=== PATIENT | male | born 1940 | race Caucasian/White ===

== ENCOUNTER → 2016-09-15 | Outpatient (REF) | payer MEDICARE, OTHER ==
[2016-09-15 19:50] LABS: ALBUMIN 4.2 GM/DL (3.2-5.2); ALBUMIN/GLOBULIN RATIO 1.31 (1.00-1.93); CALCIUM LEVEL 8.6 MG/DL (8.8-10.2); CREATININE FOR GFR 1.41 MG/DL (0.70-1.30); POTASSIUM SERUM 3.8 MEQ/L (3.5-5.1); TOTAL PROTEIN 7.4 GM/DL (6.4-8.2)
[2016-09-15 20:09] LABS: MEAN CORPUSCULAR HEMOGLOBIN 32.1 pg (27.0-33.0); MEAN CORPUSCULAR HGB CONC 33.1 g/dl (32.0-36.5); MEAN CORPUSCULAR VOLUME 97.2 fl (80.0-96.0); RED CELL DISTRIBUTION WIDTH 12.9 % (11.5-14.5)
== END ==
LOC: M SFHCADAM 11:33
PROVIDERS: ATTEND Family Medicine
DX: N18.2 Chronic kidney disease, stage 2 (mild) (principal); I11.9 Hypertensive heart disease without heart failure; E78.2 Mixed hyperlipidemia; R97.20 Elevated prostate specific antigen [PSA]; Z23 Encounter for immunization
CPT/HCPCS: 80053; 80061; 82306; 84153; 85027; 90732; G0009; G0463

== ENCOUNTER → 2017-10-26 | Outpatient (REF) | payer MEDICARE, OTHER ==
[2017-10-26 19:31] LABS: HEMATOCRIT 43.4 % (42.0-52.0); HEMOGLOBIN 14.3 g/dl (13.5-17.5); MEAN CORPUSCULAR HEMOGLOBIN 32.1 pg (27.0-33.0); MEAN CORPUSCULAR HGB CONC 32.9 g/dl (32.0-36.5); MEAN CORPUSCULAR VOLUME 97.5 fl (80.0-96.0); PLATELET COUNT, AUTOMATED 116 10^3/uL (150-450); RED BLOOD COUNT 4.45 10^6/uL (4.30-6.10); RED CELL DISTRIBUTION WIDTH 13.2 % (11.5-14.5); WHITE BLOOD COUNT 6.2 10^3/uL (4.0-10.0)
[2017-10-26 19:36] LABS: VITAMIN B12 LEVEL 272 PG/ML (247-911)
[2017-10-26 19:37] LABS: ALBUMIN 3.8 GM/DL (3.2-5.2); ALBUMIN/GLOBULIN RATIO 1.09 (1.00-1.93); ALKALINE PHOSPHATASE 88 U/L (45-117); ALT/SGPT 17 U/L (12-78); ANION GAP 8 MEQ/L (8-16); AST/SGOT 11 U/L (7-37); BILIRUBIN,TOTAL 0.8 MG/DL (0.2-1.0); BLOOD UREA NITROGEN 30 MG/DL (7-18); CALCIUM LEVEL 8.5 MG/DL (8.8-10.2); CARBON DIOXIDE LEVEL 30 MEQ/L (21-32); CHLORIDE LEVEL 108 MEQ/L (98-107); CHOLESTEROL LEVEL 160 MG/DL (<200); CREATININE FOR GFR 1.61 MG/DL (0.70-1.30); GLOMERULAR FILTRATION RATE 44.4 (>42); GLUCOSE, FASTING 74 MG/DL (70-100); HDL CHOLESTEROL 38 MG/DL (>40); LDL CHOLESTEROL 94.4 MG/DL (<100); NON-HDL-C 122 MG/DL; PROSTATIC SPECIFIC AG MONITOR 5.45 NG/ML (< 4.0); SODIUM LEVEL 146 MEQ/L (136-145); TOTAL PROTEIN 7.3 GM/DL (6.4-8.2); TRIGLYCERIDES LEVEL 138 MG/DL (<150)
== END ==
LOC: M SFHCADAM 13:58
DX: R41.3 Other amnesia (principal); N18.2 Chronic kidney disease, stage 2 (mild); E78.2 Mixed hyperlipidemia; R97.20 Elevated prostate specific antigen [PSA]
CPT/HCPCS: 82746

== ENCOUNTER → 2018-11-09 | Outpatient (REF) | payer MEDICARE, OTHER ==
[2018-11-09 13:10] LABS: HEMATOCRIT 45.7 % (42.0-52.0); MEAN CORPUSCULAR HEMOGLOBIN 32.1 pg (27.0-33.0); MEAN CORPUSCULAR HGB CONC 32.8 g/dl (32.0-36.5); MEAN CORPUSCULAR VOLUME 97.9 fl (80.0-96.0); PLATELET COUNT, AUTOMATED 130 10^3/uL (150-450); RED BLOOD COUNT 4.67 10^6/uL (4.30-6.10); WHITE BLOOD COUNT 6.5 10^3/uL (4.0-10.0)
[2018-11-09 13:18] LABS: BILIRUBIN,TOTAL 0.9 MG/DL (0.2-1.0); CALCIUM LEVEL 8.9 MG/DL (8.8-10.2); CHOLESTEROL RISK RATIO 4.736 (<5); CREATININE FOR GFR 1.52 MG/DL (0.70-1.30); GLOMERULAR FILTRATION RATE 47.3 (>42); PROSTATIC SPECIFIC AG MONITOR 6.08 NG/ML (< 4.00); TOTAL PROTEIN 7.7 GM/DL (6.4-8.2)
== END ==
LOC: M SFHCADAM 08:55
PROVIDERS: ATTEND Family Medicine
DX: E78.2 Mixed hyperlipidemia (principal); N18.2 Chronic kidney disease, stage 2 (mild); R97.20 Elevated prostate specific antigen [PSA]
CPT/HCPCS: 80053; 80061; 84153; 85027; 99497; G0463

== ENCOUNTER → 2020-12-12 | Outpatient (REF) | payer MEDICARE, OTHER ==
[2020-12-12 18:15] LABS: HEMATOCRIT 44.3 % (42.0-52.0); HEMOGLOBIN 14.7 g/dl (13.5-17.5); MEAN CORPUSCULAR HEMOGLOBIN 31.4 pg (27.0-33.0); MEAN CORPUSCULAR HGB CONC 33.2 g/dl (32.0-36.5); MEAN CORPUSCULAR VOLUME 94.7 fl (80.0-96.0); PLATELET COUNT, AUTOMATED 167 10^3/uL (150-450); RED BLOOD COUNT 4.68 10^6/uL (4.30-6.10); WHITE BLOOD COUNT 7.8 10^3/uL (4.0-10.0)
[2020-12-12 18:50] LABS: ALBUMIN 3.8 GM/DL (3.2-5.2); BILIRUBIN,TOTAL 0.7 MG/DL (0.2-1.0); CALCIUM LEVEL 8.8 MG/DL (8.8-10.2); CHOLESTEROL RISK RATIO 5.272 (<5); CREATININE FOR GFR 1.61 MG/DL (0.70-1.30); FREE T4 1.01 NG/DL (0.76-1.46); GLOMERULAR FILTRATION RATE 44.1 (>35); PROSTATIC SPECIFIC AG MONITOR 8.24 NG/ML (< 4.00); THYROID STIMULATING HORMONE 1.42 uIU/ML (0.358-3.740); TOTAL PROTEIN 7.4 GM/DL (6.4-8.2)
== END ==
LOC: M SFHCADAM 14:43
PROVIDERS: ATTEND Family Medicine
DX: N18.2 Chronic kidney disease, stage 2 (mild) (principal); E78.2 Mixed hyperlipidemia; R41.3 Other amnesia; I11.9 Hypertensive heart disease without heart failure; R97.20 Elevated prostate specific antigen [PSA]
CPT/HCPCS: 80053; 80061; 84153; 84439; 84443; 85027; G0463

== ENCOUNTER → 2022-10-20 | Outpatient (REF) | payer MEDICARE, OTHER ==
[2022-10-20 14:07] LABS: HEMOGLOBIN 14.3 g/dl (13.5-17.5); MEAN CORPUSCULAR HEMOGLOBIN 31.5 pg (27.0-33.0); MEAN CORPUSCULAR HGB CONC 32.5 g/dl (32.0-36.5); MEAN CORPUSCULAR VOLUME 96.9 fl (80.0-96.0); PLATELET COUNT, AUTOMATED 155 10^3/uL (150-450); RED BLOOD COUNT 4.54 10^6/uL (4.30-6.10)
[2022-10-20 14:28] LABS: HEMOGLOBIN A1c 5.2 % (4.0-6.0)
[2022-10-20 14:38] LABS: THYROID STIMULATING HORMONE 1.528 uIU/ML (0.55-4.78)
[2022-10-20 14:39] LABS: FREE T4 0.88 NG/DL (0.89-1.76)
[2022-10-20 14:41] LABS: ALKALINE PHOSPHATASE 97 U/L (46-116); ALT/SGPT < 9 U/L (7.0-40); AST/SGOT < 8 U/L (<34); BILIRUBIN,TOTAL 0.9 MG/DL (0.3-1.2); BLOOD UREA NITROGEN 26 MG/DL (9-23); CALCIUM LEVEL 8.7 MG/DL (8.3-10.6); CARBON DIOXIDE LEVEL 28 MMOL/L (20-31); CHLORIDE LEVEL 104 MMOL/L (98-107); CHOLESTEROL LEVEL 164 MG/DL (<200); CHOLESTEROL RISK RATIO 5.25 (<5); CREATININE FOR GFR 1.43 MG/DL (0.70-1.30); FOLATE 7.27 NG/ML (>5.4); GLOMERULAR FILTRATION RATE 50.4 (>35); GLUCOSE, FASTING 105 MG/DL (74-106); HDL CHOLESTEROL 31.2 MG/DL (>40); NON-HDL-C 132.8 MG/DL; POTASSIUM SERUM 3.9 MMOL/L (3.5-5.1); SODIUM LEVEL 141 MMOL/L (136-145); TOTAL PROTEIN 7.4 G/DL (5.7-8.2); TRIGLYCERIDES LEVEL 99 MG/DL (<150); VITAMIN B12 LEVEL 258 PG/ML (211-911)
== END ==
LOC: M SFHCADAM 11:21
PROVIDERS: ATTEND Family Medicine
DX: I11.9 Hypertensive heart disease without heart failure (principal); N18.31 Chronic kidney disease, stage 3a; E78.2 Mixed hyperlipidemia; G30.9 Alzheimer's disease, unspecified; Z13.1 Encounter for screening for diabetes mellitus